=== PATIENT | female | born 1935 | race Caucasian/White ===

== ENCOUNTER 2016-09-16 17:12 | Emergency (ER) | payer MEDICARE, BC ==
[2016-09-16 17:31] VITALS: BP 177/86
[2016-09-16] MEDS ORDERED: Cephalexin CAP* 500 MG PO ONE (17:59)
--- NOTE | 2016-09-16 18:11 | UC ---
I, Ventura,Mary, scribed for Edilma Keating MD on 09/16/16 at 1757 . Complaint Female HPI - HPI Summary HPI Summary: THis 81 y/o female presents to [facility] for acute on recurrent UTI since today AM. Pt reports fever and chills. Negative n/v, JACOB, abd pain, back pain, SOB, chest tightness, or hematuria. Pt reports itching in groin area and suprapubic pressure, increased frequency, and burning dysuria. Temperature of 100.4 F is noted at time of triage. PMHx does include recurrent UTI with last episode a month ago. Urine culture was positive for E.coli and Klebsiella in August 2016. Macrobid was rx and finished, and pt reports that symptoms were cleared after abx tx. Other PMHx includes known HTN, RBBB, and CAD s/p triple bypass in 1995. Bactrim allergies was confirmed with pt, but she was not able to elaborate exact reactions. Primary care involves Columba Ayala, and has pending appointment in next 5 days. Pt lives with with her children living nearby. EMR and previous lab reviewed. Creatinine of 0.87 is noted from 03/15/2016, and indicative of nml renal function at pt's baseline. Plan of care involving cephalosporin tx is discussed with pt, and she is agreeable at this time. - History Of Current Complaint Chief Complaint: UCGU Stated Complaint: UTI COMPLAINT Time Seen by Provider: 09/16/16 17:39 Hx Obtained From: Patient, Medical Records ?: No Onset/Duration: Sudden Onset, Lasting Hours, Still Present Timing: Constant Pain Intensity: 4 Pain Scale Used: 0-10 Numeric Aggravating Factor(s): Nothing Alleviating Factor(s): Nothing Associated Signs And Symptoms: Positive: Fever - Allergies/Home Medications Allergies/Adverse Reactions: Allergies Allergy/AdvReac Type Severity Reaction Status Date / Time Sulfa Antibiotics AdvReac Unknown Rash Verified 09/16/16 17:31 PMH/Surg Hx/FS Hx/Imm Hx Endocrine History Of: Denies: Diabetes, Thyroid Disease Cardiovascular History Of: Reports: Hypertension - Ischemic heart disease Denies: Cardiac Disorders Respiratory History Of: Denies: COPD, Asthma GI/ History Of: Denies: Ulcer Neurological History Of: Reports: TIA - elected to have carotid endarterectomy at 80% stenosis. Cancer History Of: Denies: Breast Cancer - Surgical History Surgical History: Yes Surgery Procedure, Year, and Place: cholecystectomy. tubal ligation. CABG (3 vessel). right carotid endartarectomy - Family History Known Family History: Positive: Other - Positive for CVA - Social History Occupation: Retired Lives: With Family Alcohol Use: None Substance Use Type: None Smoking Status (MU): Never Smoked Tobacco Review of Systems Constitutional: Fever, Chills Skin: Negative Eyes: Negative ENT: Negative Respiratory: Negative Cardiovascular: Other - hx of hypertension. BP today is elevated; she states that this is typical at office visits. Continues on losartan 25mg once daily at home. Recent check with Dr. Cerda, meds were not adjusted. Gastrointestinal: Negative Genitourinary: Dysuria - burning, Frequency - increased, Other - Suprapubic pressure Motor: Negative Neurovascular: Negative Musculoskeletal: Negative Neurological: Negative - NO headache, no mental confusion. Psychological: Negative All Other Systems Reviewed And Are Negative: Yes Physical Exam Triage Information Reviewed: Yes Appearance: Ill-Appearing - looks flushed and mildly unwell, but alert and coherent. No acute distress. Vital Signs: Initial Vital Signs Temp 100.4 F 09/16/16 17:24 Pulse 78 09/16/16 17:24 Resp 18 09/16/16 17:24 BP 177/86 09/16/16 17:24 Pulse Ox 98 09/16/16 17:24 Vital Signs Reviewed: Yes ENT: Positive: Pharynx normal Dental Exam: Normal Neck: Positive: Supple, Nontender Respiratory: Positive: Chest non-tender, Lungs clear, Normal breath sounds Cardiovascular: Positive: RRR, No Murmur Abdomen Description: Positive: No Organomegaly, Soft, Other: - mild suprapubic tenderness. No CV angle tenderness. Bowel Sounds: Positive: Present Musculoskeletal Exam: Normal Psychological Exam: Normal Skin Exam: Normal Diagnostics - Laboratory Diagnostic Studies Completed/Ordered: UA at [facility] today is noted with trace amount of intact blood and 2+ leukocytes. Complaint Female Dx - Course Course Of Treatment: cephalexin for UTI - Differential Dx/Diagnosis Differential Diagnosis/HQI/PQRI: Urinary Tract Infection Provider Diagnoses: UTI Discharge - Discharge Plan Condition: Stable Disposition: HOME Prescriptions: Cephalexin CAP* [Keflex 500 CAP*] 500 mg PO TID #21 cap Patient Education Materials: Urinary Traction Infection in Older Adults (ED) Referrals: Columba Banks MD [Primary Care Provider] - Additional Instructions: Ensure that you take the full course of antibiotics. Should you have persistent fever beyond tomorrow, begin vomiting, or have increasing abdominal or back pain, please return for reassessment. Follow up as arranged with The documentation as recorded by the Ventura demarco Soohyun accurately reflects the service I personally performed and the decisions made by me, Edilma Keating MD.
== END 2016-09-16 18:10 | disposition home or self-care (01) ==
LOC: UCEAST 17:12
DX: N39.0 Urinary tract infection, site not specified (principal); Z87.440 Personal history of urinary (tract) infections; I10 Essential (primary) hypertension; Z88.2 Allergy status to sulfonamides; Z86.73 Personal history of transient ischemic attack (TIA), and cerebral infarction without residual deficits; Z95.1 Presence of aortocoronary bypass graft; Z90.49 Acquired absence of other specified parts of digestive tract
CPT/HCPCS: 81003; 87077; 87086; 87186; 99212; A9270-GY; G0463

== ENCOUNTER 2017-09-25 17:52 | Emergency (ER) | payer MEDICARE, BC ==
[2017-09-25 18:30] LABS: ABS Basophils 0.1 10^3/ul (0-0.2); ABS Eosinophils 0.2 10^3/ul (0-0.6); ABS Monocytes 0.6 10^3/ul (0-0.8); ABS Neutrophils 2.9 10^3/ul (1.5-7.7); ABS Nucleated RBC 0 10^3/ul; Eosinophil % 3.1 % (0-6); Hematocrit 42 % (35-47); Hemoglobin 14.2 g/dl (12.0-16.0); Lymphocyte % 34.8 % (25-47); Mean Corpuscular HGB Conc 34 g/dl (31-36); Mean Corpuscular Hemoglobin 31 pg (27-31); Mean Corpuscular Volume 93 fL (80-97); Mean Platelet Volume 8.7 um3 (7.4-10.4); Nucleated Red Blood Cells % 0; Platelet Count 264 10^3/ul (150-450); Red Blood Count 4.53 10^6/ul (4.0-5.4); Red Cell Distribution Width 14 % (10.5-15); White Blood Count 5.8 10^3/ul (3.5-10.8)
[2017-09-25 18:52] LABS: EGFR Non-African American 59.2 (>60)
--- NOTE | 2017-09-25 18:52 | ED ---
Complex/Multi-Sys Presentation - HPI Summary HPI Summary: 82 female presents to ER with complaints of having an episode of feeling weak and sweaty just prior to arrival. Patient states this episode lasted approximately 10-15 minutes and has since resolved. Patient is currently asymptomatic. States she had a stressful day after waking up this morning with an altered , which showed a call ambulance for. is now admitted to the fourth floor for sepsis. States she hasn't ate much and has been under a lot of stress being by her side all day in the ER and upstairs. Denies any chest pain, dizziness, shortness of breath, trouble breathing, fever , urinary symptoms, recent illness or abdominal pain. States she has a history of vasovagal syncope however she did not feel lightheaded or as if she was going to have a near syncopal episode. States she typically has signs and prior to these episodes including blurred vision in which did not experience. States she did take her medication this morning. Has a past medical history of high blood pressure, triple coronary bypass 20 years ago, right bundle branch block. Just had recent annual follow-up with Dr. Barnes last week. - History Of Current Complaint Chief Complaint: EDDizziness Time Seen by Provider: 09/25/17 18:07 Hx Obtained From: Patient Onset/Duration: Sudden Onset, Lasting Minutes, Resolved Timing: Minutes Severity Currently: None Severity Initially: Mild Location: Negative Aggravating Factor(s): None Alleviating Factor(s): Rest Associated Signs And Symptoms: Positive: Diaphoresis - Lasting minutes. Negative: Dizziness, Syncope, SOB, Cough, Wheezing, Chest Pain, Palpitations, Nausea, Vomiting, Diarrhea, Abdominal Pain, Recent Trauma, Remote Trauma - Allergies/Home Medications Allergies/Adverse Reactions: Allergies Allergy/AdvReac Type Severity Reaction Status Date / Time Sulfa (Sulfonamide Allergy Mild Rash Verified 09/25/17 18:30 Antibiotics) PMH/Surg Hx/FS Hx/Imm Hx Endocrine/Hematology History: Denies: Hx Diabetes, Hx Thyroid Disease Cardiovascular History: Reports: Hx Coronary Artery Disease, Hx Hypercholesterolemia, Hx Hypertension - Ischemic heart disease, Hx Peripheral Vascular Disease, Other Cardiovascular Problems/Disorders - Raynaud's disease Respiratory History: Denies: Hx Asthma, Hx Chronic Obstructive Pulmonary Disease (COPD) GI History: Denies: Hx Ulcer Neurological History: Reports: Hx Transient Ischemic Attacks (TIA) - elected to have carotid endarterectomy at 80% stenosis. - Cancer History Hx Chemotherapy: No Hx Radiation Therapy: No - Surgical History Surgery Procedure, Year, and Place: cholecystectomy. tubal ligation. CABG (3 vessel). right carotid endartarectomy - Immunization History Immunizations Up to Date: Yes Infectious Disease History: No Infectious Disease History: Denies: Hx Clostridium Difficile, Hx Hepatitis, Hx Human Immunodeficiency Virus (HIV), Hx of Known/Suspected MRSA, Hx Shingles, Hx Tuberculosis, Hx Known/ Suspected VRE, Hx Known/Suspected VRSA, History Other Infectious Disease, Traveled Outside the [place] in Last 30 Days - Family History Known Family History: Positive: Other - Positive for CVA - Social History Alcohol Use: None Substance Use Type: Reports: None Smoking Status (MU): Never Smoked Tobacco Review of Systems Constitutional: Negative Cardiovascular: Negative Respiratory: Negative Gastrointestinal: Negative Musculoskeletal: Negative Positive: Weakness - and diaphoretic resolved Positive: Anxious - stressed All Other Systems Reviewed And Are Negative: Yes Physical Exam Triage Information Reviewed: Yes Vital Signs On Initial Exam: Initial Vitals Temp Pulse Resp BP Pulse Ox 97.5 F 75 18 199/83 99 09/25/17 17:53 09/25/17 17:53 09/25/17 17:53 09/25/17 17:53 09/25/17 17:53 Vital Signs Reviewed: Yes Appearance: Positive: Well-Appearing, No Pain Distress, Well-Nourished Skin: Positive: Warm, Skin Color Reflects Adequate Perfusion, Dry. Negative: Cold, Numb, Cyanosis @, Jaundiced, Pale, Erythema @ Head/Face: Positive: Normal Head/Face Inspection Eyes: Positive: Normal, EOMI, LELAND, Conjunctiva Clear ENT: Positive: Hearing grossly normal, Pharynx normal Neck: Positive: Supple, Nontender Respiratory/Lung Sounds: Positive: Clear to Auscultation, Breath Sounds Present. Negative: Rales, Rhonchi, Wheezes Cardiovascular: Positive: Normal, RRR, Pulses are Symmetrical in both Upper and Lower Extremities, Other - No JVD. Negative: Murmur, Rub Abdomen Description: Positive: Nontender, No Organomegaly, Soft. Negative: CVA Tenderness (R), CVA Tenderness (L) Bowel Sounds: Positive: Present Musculoskeletal: Positive: Normal, Strength/ROM Intact Neurological: Positive: Normal, Sensory/Motor Intact, Alert, Oriented to Person Place, Time, CN Intact II-III, Reflexes Intact, NV Bundle Intact Distally, Normal Gait, Finger to Nose, Facial Symmetry, Speech Normal - [place] Coma Scale Best Eye Response: 4 - Spontaneous Best Motor Response: 6 - Obeys Commands Best Verbal Response: 5 - Oriented Coma Scale Total: 15 Diagnostics - Vital Signs Vital Signs Temp Pulse Resp BP Pulse Ox 09/25/17 18:39 71 15 197/95 97 09/25/17 18:09 69 20 98 09/25/17 18:08 18 190/102 09/25/17 17:53 97.5 F 75 18 199/83 99 - Laboratory Lab Results: Lab Results 09/25/17 09/25/17 Range/Units 18:17 18:17 WBC 5.8 (3.5-10.8) 10^3/ul RBC 4.53 (4.0-5.4) 10^6/ul Hgb 14.2 (12.0-16.0) g/dl Hct 42 (35-47) % MCV 93 (80-97) fL MCH 31 (27-31) pg MCHC 34 (31-36) g/dl RDW 14 (10.5-15) % Plt Count 264 (150-450) 10^3/ul MPV 8.7 (7.4-10.4) um3 Neut % (Auto) 50.8 (38-83) % Lymph % (Auto) 34.8 (25-47) % [place] % (Auto) 10.4 H (0-7) % Eos % (Auto) 3.1 (0-6) % Baso % (Auto) 0.9 (0-2) % Absolute Neuts (auto) 2.9 (1.5-7.7) 10^3/ul Absolute Lymphs (auto) 2.0 (1.0-4.8) 10^3/ul Absolute Monos (auto) 0.6 (0-0.8) 10^3/ul Absolute Eos (auto) 0.2 (0-0.6) 10^3/ul Absolute Basos (auto) 0.1 (0-0.2) 10^3/ul Absolute Nucleated RBC 0 10^3/ul Nucleated RBC % 0 APTT 30.1 (26.0-36.3) seconds Result Diagrams: 09/25/17 18:17 09/25/17 18:17 Lab Statement: Any lab studies that have been ordered have been reviewed, and results considered in the medical decision making process. - EKG EKG Cardiac Rate: NL EKG Rhythm: Sinus Rhythm ST Segment: Normal Ectopy: None EKG Interpretation: NSR at 74bpm, RBBB EKG Comparison: No Significant Change Re-Evaluation - Re-Evaluation First Eval Re-Evaluation Time: 19:15 Change: Improved - patient feeling much better, states she was stressed and wants to go home, updated on labs and EKG results. elevated HTN possibly cause of her symptoms earlier, along with some dehydration however patient did not want further work up/treatment and wanted to go back upstairs to her Complex Multi-Symp Course/Dx Course Of Treatment: labs and EKG obtained. EKG showed NSR, with RRR previously diagnosed, similar to previous EKG. Normal labs, negative troponin. Slightly dehydrated. Patient appears anxious and stressed. Patient had stressful day with her being sick. symptoms probably due to stress and dehydration. However concerned for patient elevated blood pressure. patient does have hypertension typically takes 20 mg daily for hypertension however state today she took 40 mg daily and she does this when she is stressed and feels her blood pressure is higher. Does admit to taking her blood pressure medicines today. However blood pressure is still elevated. Unknown if patient actually took medication with the stressful events that occurred today. Patient wanted to sign out AMA prior to decreasing blood pressure. Rest of exam and vitals were normal. Patient was asymptomatic throughout ED stay. - Diagnoses Provider Diagnoses: Hypertension, Dehydration, Weakness Discharge - Sign-Out/Discharge Documenting (check all that apply): Discharge/Admit/Transfer - Discharge Plan Condition: Stable Disposition: AGAINST MEDICAL ADVICE Referrals: Columba Banks MD [Primary Care Provider] - - Billing Disposition and Condition Condition: STABLE Disposition: AMA
[2017-09-25 19:40] VITALS: BP 186/106
== END 2017-09-25 19:44 | disposition left against medical advice (07) ==
LOC: ED 17:52
DX: E86.0 Dehydration (principal); I10 Essential (primary) hypertension; R53.1 Weakness; Z88.2 Allergy status to sulfonamides; Z53.21 Procedure and treatment not carried out due to patient leaving prior to being seen by health care provider
CPT/HCPCS: 36415; 80053; 83605; 83735; 83880; 84443; 84484; 85025; 85730; 93005; 99284

== ENCOUNTER 2022-12-06 12:27 | Inpatient (IN) ==
[2022-12-06 13:41] LABS: ABS Lymphocytes 0.6 10^3/uL (1.0-4.8); ABS Monocytes 0.5 10^3/uL (0.0-0.9); ABS Nucleated RBC 0.01 10^3/ul; Hematocrit 39.6 % (35-45); Hemoglobin 13.8 g/dL (11.5-14.3); Lymphocyte % 6.8 %; Mean Corpuscular Hgb Conc 34.7 g/dL (31-36); Mean Corpuscular Volume 89.3 fL (80-97); Mean Platelet Volume 8.5 fL (7.5-11.2); Nucleated Red Blood Cells % 0.2 /100 WBC (0.0-0.4); Platelet Count 259 10^3/uL (150-450); Red Blood Count 4.44 10^6/uL (3.63-4.92); Red Cell Distribution Width 13.7 % (12-17); White Blood Count 9.1 10^3/uL (3.8-11.8)
[2022-12-06 13:59] LABS: Albumin 4.1 g/dL (3.2-5.2); Albumin/Globulin Ratio 1.1 (1-3); Calcium 9.9 mg/dL (8.6-10.3); Creatinine, Serum 0.79 mg/dL (0.51-0.95); Globulin 3.8 g/dL (2-4); Potassium 3.5 mmol/L (3.5-5.0); Total Bilirubin 0.8 mg/dL (0.2-1.0); Total Protein 7.9 g/dL (6.4-8.9); eGFR CKD-EPI 72.4 (>60)
[2022-12-06] MEDS ORDERED: Iohexol 350 (CONTRAST) 500 ML MDV IV ONE (14:21)
[2022-12-06 14:35] LABS: TSH Ultra Thyroid Stim Horm 1.25 mcIU/mL (0.34-5.60)
[2022-12-06 15:32] LABS: High Sensitivity Troponin 1 Hr 66 pg/mL (<15)
[2022-12-06 15:56] LABS: Urine Appearance Clear; Urine Bilirubin Negative (Negative); Urine Blood 1+ (Negative); Urine Color Yellow; Urine Glucose Negative (Negative); Urine Ketones 1+ (Negative); Urine Nitrite Negative (Negative); Urine Protein Negative (Negative); Urine Specific Gravity 1.059 (1.002-1.030); Urine Urobilinogen Negative (Negative)
[2022-12-06 16:01] LABS: Urine Bacteria Absent (Absent); Urine Red Blood Cell 2+(6-10/hpf) (Absent); Urine Squamous Epithelial Cell Present (Absent); Urine White Blood Cell Trace(0-5/hpf) (Absent)
[2022-12-06 17:34] LABS: Osmolality Serum 279 mOsm/kg (275-295)
[2022-12-06] MEDS ORDERED: Enoxaparin 40 MG/0.4 ML SYR SUBCUT SCH ×2 (18:00→19:30)
[2022-12-06] MEDS ORDERED: Remdesivir 100 mg Vial 200 MG in NS 0.9% 250 ml 210 ML IV ONE (18:22)
[2022-12-07 06:38] LABS: Calcium 9.1 mg/dL (8.6-10.3); Creatinine, Serum 0.84 mg/dL (0.51-0.95); Potassium 3.7 mmol/L (3.5-5.0); eGFR CKD-EPI 67.2 (>60)
[2022-12-07] MEDS ORDERED: Aspirin EC 81 mg TAB.EC (enteric coated) PO SCH (09:00)
[2022-12-07 13:33] VITALS: BP 134/71
[2022-12-07] MEDS ORDERED: Remdesivir 100 mg Vial 100 MG in NS 0.9% 250 ml 230 ML IV SCH (21:00)
== END 2022-12-07 16:45 | disposition home or self-care (01) | DRG 178 ==
LOC: ED 12:27 → SUATTDRO 17:59 → EDHOLD 17:59 → MEDTELE 12-07 00:18
PROVIDERS: ADMIT Internal Medicine; ATTEND Hospitalist